=== PATIENT | male | born 1955 | race Caucasian/White ===

== ENCOUNTER 2020-10-06 10:32 | Outpatient (REF) | payer MEDICAID, SELFPAY | END 2020-10-06 10:33 | disposition home or self-care (01) | LOC: HO.LAB 10:32 | PROVIDERS: Visit Provider Internal Medicine | DX: Z20.828 Contact with and (suspected) exposure to other viral communicable diseases (principal) | CPT/HCPCS: C9803; U0003 ==

== ENCOUNTER → 2021-03-01 10:48 | Outpatient (BNV) | payer MEDICARE, MEDICAID, SELFPAY | PROVIDERS: Visit Provider Internal Medicine Medical Oncology | DX: C85.90 Non-Hodgkin lymphoma, unspecified, unspecified site (principal); D64.9 Anemia, unspecified | CPT/HCPCS: 99213 ==

== ENCOUNTER 2024-08-28 09:32 | Outpatient (REF) | payer MEDICARE, MEDICAID, SELFPAY ==
[2024-08-28 11:21] LABS: MANUAL DIFF FLAG NO
[2024-08-28 11:25] LABS: Basophils Absolute Auto 0.1 X10*3/uL (0.0-0.2); Basophils Percent Auto 0.7 % (0-2); Eosinophils Absolute Auto 0.2 X10*3/uL (0.0-0.4); Eosinophils Percent Auto 2.7 % (0-4); Hematocrit 43.3 % (42.0-52.0); Hemoglobin 14.6 g/dl (14.0-18.0); Imm Gran Abs Auto 0.02 X10*3/uL (0.00-0.03); Imm Gran Pct Auto 0.3 % (0.0-0.4); Lymphocytes Absolute Auto 1.8 X10*3/uL (1.2-4.9); Lymphocytes Percent Auto 25.3 % (20-40); Mean Corpuscular HGB Conc 33.7 g/dl (31.0-36.0); Mean Corpuscular Hemoglobin 31.5 pg (27.0-33.0); Mean Corpuscular Volume 93.3 fL (80.0-98.0); Mean Platelet Volume 10.3 fL (9.4-12.4); Monocytes Absolute Auto 0.5 X10*3/uL (0.1-1.2); Monocytes Percent Auto 7.6 % (2-11); Neutrophils Absolute Auto 4.4 x10*3/uL (2.0-8.3); Neutrophils Percent Auto 63.4 % (45-73); Platelet Count 247 X10*3/uL (160-400); Red Blood Count 4.64 X10*6/uL (4.60-5.80); Red Cell Distribution Width 12.1 % (11.0-16.0)
[2024-08-28 11:35] LABS: Estimated Average Glucose 180 mg/dL; Hemoglobin A1C 225.6029 umol/L; Hemoglobin A1c % 7.9 % (<6.0); Total Hemoglobin (HGBA1C) 3620.5205 umol/L
[2024-08-28 11:40] LABS: Creatinine Urine 150.23 mg/dL; Microalbum/Creatinine Ratio Ur 6.6 ug/mg cr (<30)
[2024-08-28 11:51] LABS: Anion Gap 11 (12-20); Blood Urea Nitrogen 17 mg/dL (9-16); Calcium 10.1 mg/dL (8.4-10.2); Carbon Dioxide 27 mmol/L (22-29); Chloride 106 mmol/L (96-108); Cholesterol 177 mg/dL (<200); Estimated Glomerular Filt Rate > 60; Glucose Random 207 mg/dL (60-115); HDL Cholesterol 54 mg/dL (>40); LDL Cholesterol Calculated 96 mg/dL (<100); Potassium 4.3 mmol/L (3.3-5.1); Sodium 140 mmol/L (135-145); Triglycerides 137 mg/dL (<150)
== END 2024-08-28 09:33 | disposition home or self-care (01) ==
LOC: HO.HHCL 09:32
PROVIDERS: Visit Provider Family Medicine
DX: E11.9 Type 2 diabetes mellitus without complications (principal); Z79.4 Long term (current) use of insulin
CPT/HCPCS: 36415; 80048; 80061; 82043; 82570; 83036; 85025

== ENCOUNTER 2025-04-20 10:34 | Outpatient (REF) | payer OTHER, SELFPAY ==
[2025-04-20 11:15] LABS: MANUAL DIFF FLAG NO
--- OUTSIDE RECORDS SUMMARY | 2025-04-20 11:26 | XMS_ITS | Clinical Summary ---
Author Organization [employer] Address [address] [place] [address] Care Team Providers Care Case Coordinator Name Role Phone Chandni Morales MD Primary Care Provider + Allergies No known active allergies Medications insulin glargine (Lantus SoloStar) 100 UNIT/ML pen inject by subcutaneous route 8 units QHS 1 Active metFORMIN XR (Glucophage-XR) 500 MG 24 hr tablet TAKE 2 TABLETS BY MOUTH TWICE DAILY IN THE MORNING AND EVENING 2 Active sildenafil (Viagra) 50 MG tablet Take 1 tablet by mouth at bed time. 1 Active simvastatin (Zocor) 40 MG tablet Take 1 tablet by mouth at bed time. 1 Active FREESTYLE LITE test strip Use to test blood sugar 1x times daily 100 each 12 5 03/05/20 26 Active Lancets misc Use to test blood sugar 1x times daily 100 each 11 5 Active Blood Glucose Monitoring Suppl (FreeStyle Art Lite) w/Device kit Use to test blood sugar 1x times daily 1 kit 5 Active DULoxetine (Cymbalta) [address] capsule Take 1 capsule (30 mg) by mouth 2 times daily. Do not crush or chew. 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 He prefers to start medications and follow-up with me in 4 weeks. We discussed the importance of quitting alcohol and any other recreational substance use, I told him he can reach out to CRS building at any point and also acupuncture treatments. He is not interested on AUD clinic referral or [facility] pharmacy program for cigarette smoking. Start duloxetine 30 mg x 2 weeks then twice daily and follow-up with me in 4 weeks to adjust medications We discussed about crisis number and reach out to the walk-in center if needed He feels safe at home and is able to reach out for safety, he does not have any SI or HI at this time. Vitamin D deficiency 09/20/2012 Smoker 09/06/2012 Hypertension 09/06/2012 Assessment & Plan (03/05/2025 4:50 PM EDT): Off medications at this time Advised to check BP at home 3 times weekly and follow-up with me in 4 to 5 weeks Advised to quit smoking, increase exercise. History of substance abuse 09/06/2012 Assessment & Plan (03/05/2025 4:54 PM EDT): Currently using THC and cocaine regularly, he is aware of side effects and long- term consequences of its use and agreed to start cutting down on its own. We discussed about importance of psychotherapy and that he can reach out to recovery coaches or CRS programs, he is not interested on any referral at this point. I told him he can come to acupuncture clinic that could help him with anxiety and quitting smoking and alcohol. Follow-up with me in 4 weeks Agreed to STI testing History of alcohol abuse 09/06/2012 Diabetes mellitus 09/06/2012 Assessment & Plan (03/05/2025 4:51 PM EDT): Mildly uncontrolled, A1c may be good for his age. We discussed importance of lifestyle modifications, especially cutting down on alcohol and increase physical activity. Will hold off on medications for now, order labs and follow-up with me in 4 weeks Check fingersticks once daily Encounters Date Type Department Care Team Description 03/20/2025 Telephone [facility] [address] [place] [phone] Chandni Morales MD 03/19/2025 Telephone [facility] [address] [place] [phone] Chandni Morales MD June recall 03/05/2025 9:15 AM EDT Office Visit [address] [address] Chandni Morales MD Primary hypertension (Primary Dx); Type 2 diabetes mellitus with hyperglycemia, with long-term current use of insulin (CMS/[facility]); History of substance abuse ([facility]); Mild episode of recurrent major depressive disorder ([facility]); Sexually transmitted disease counseling 03/05/2025 Travel 03/04/[address] [phone] Chandni Morales MD Chart Prep 02/23/2025 Patient Outreach [address] [address] Chandni Morales MD Pre-visit Planning ((Unable to reach for PVP screening, LVM)) from Last 3 Months Immunizations Immunization Administration Dates Next Due Hep A, Adult 11/06/2012 Hep B, adult 12/05/2012,11/06/2012 Influenza injectable quadriv alent IIV4 with preservative 07/21/2015 Influenza injectable quadriv alent preservative free 09/29/2019,08/12/2018,07/30/2017 Influenza, IIV3, injectable 06/24/2014, 7 Influenza, Split (incl. juliocesar fied surface antigen) 11/06/2012 Influenza, seasonal, injecta ble, preservative free 12/28/2016 MMR 11/06/2012 Pneumococcal Polysaccharide PPSV23 08/12/2018, TD (adult), 2 Lf tetanus tox oid, preservative free, adsorbed 06/25/2006 Tdap 11/06/2012 Zoster, Recombinant 05/27/2021,03/23/2021 Family History Medical History Relation Name Comments Colon cancer Mother Throat cancer Other Relation Name Status Comments Mother Other Social History Tobacco Use Types Packs/Day Years Used Date Smoking Tobacco: Every Day Cigarettes Passive Smoke Exposure: Current Tobacco Cessation:Ready to Q uit: Not Asked; Counseling Given: Not Answered Alcohol Use Standard Drinks/Week Comments Not Currently 1 (1 standard drink = 0.6 oz pur e alcohol) 1 pint/ drink Alcohol Answer Date Recorded Q1: How often do you have a drink containing alc ohol? 4 03/05/2025 Q2: How many drinks containi ng alcohol do you have on a typical day when you are drinking? 1 03/05/2025 Q3: How often do you have six or more drinks on one occasion? 2 03/05/2025 Depression Answer Date Recorded Patient Health Questionnaire-9 Score 6 03/05/2025 Patient Health Questionnaire-9 Score 6 03/05/2025 Last PHQ-9: Questionnaire Data Not on file 0 03/05/2025 Depression Answer Date Recorded Patient Health Questionnaire-2 Score 2 03/05/2025 Sex and Gender Information Value Date Recorded Sex Assigned at Male 08/07/2022 10:18 AM EDT Legal Sex Male 10:18 AM EDT Gender Identity Male 08/07/2022 10:18 AM EDT Sexual Orientation Straight 08/07/2022 10 :18 AM EDT Last Filed Vital Signs Vital Sign Reading Time Taken Comments Blood Pressure 136/80 03/05/2025 9:23 AM EDT Pulse 84 03/05/2025 9:23 AM EDT Temperature 36.3 C (97.3 F) 03/05/2025 9:23 AM EDT Respiratory Rate 16 03/05/2025 9:23 AM EDT Oxygen Saturation 98% 08/28/2024 8:55 AM EST Inhaled Oxygen Concentration - - Weight 74.8 kg (165 lb) 03/05/2025 9:23 AM EDT Height 180.3 cm (5' 11 ) 03/05/2025 9:23 AM EDT Body Mass Index 23.01 03/05/2025 9:23 AM EDT Plan of Treatment Upcoming Encounters Date Type Department Care Team (Late st Contact Info) Description 06/11/2025 10:30 AM EDT Office Visit [facility] [address] [place] [address] Chandni Morales MD [address] [place] [address] Health Maintenance Due Date Last Done Comments CT Colonography 1957 Colonoscopy 1957 Colorectal Cancer Screening 1957 FIT DNA/Cologuard 1957 FIT 1957 FOBT 1957 SDOH Screening 1957 Sigmoidoscopy 1957 Diabetes: Foot Exam 1967 Hepatitis C Screening 1975 Hepatitis B Vaccines (3 of 3 - 19+ 3-dose series) 05/06/2013 12/05/2012, 11/06/2012 RSV Patients and Patients Aged 60 years or older (1 - Risk 60-74 years 1-dose series) 2017 Pneumococcal Vaccine: 50+ Years (2 of 2 - PCV) 08/12/2019 08/12/2018, 06/25/2006 DTaP/Tdap/Td Vaccines (2 - Td or Tdap) 11/06/2022 11/06/2012, 06/25/2006 Eye Exam 03/02/2024 03/02/2023, 02/06, 03/02/2023, Additional history exists COVID-19 Vaccine ( season) 2024 08/24/2021, 01/22/2021, 12/30/2020 Diabetes: Hemoglobin A1C 06/05/2025 025, 08/28/2024, 08/28/2024 Influenza Vaccine (#1) 2025 9, 08/12/2018, 07/30/2017, Additional history exists Diabetes: Urine Protein Screening 08/28/2025 08/28/2024, 12/10/2020 Lipid Panel 08/28/2025 08/28/2024, 12/10/2020 Alcohol/Substance Use Screening 03/05/2026 03/05/2025 Depression Screening 03/05/2026 03/05/2025, 03/05/20 Tobacco Screening 03/05/2026 03/05/2025 Hepatitis A Vaccines Aged Out 11/06/2012 No long er eligible based on patient's age to complete this topic Zoster Vaccines Completed 05/27/2021, 03/23/2021 HIB Vaccines Aged Out No longer eligi ble based on patient's age to complete this topic HPV Vaccines Aged Out No longer eligi ble based on patient's age to complete this topic IPV Vaccines Aged Out No longer eligi ble based on patient's age to complete this topic Meningococcal B Vaccine Aged Out No l onger eligible based on patient's age to complete this topic Meningococcal Vaccine Aged Out No jerome santana eligible based on patient's age to complete this topic RSV under 20 months Aged Out No longe r eligible based on patient's age to complete this topic Rotavirus Vaccines Aged Out No longer eligible based on patient's age to complete this topic Procedures Procedure Name Priority Date/Time Associated Diagnosis Comments POCT GLYCATED HEMOGLOBIN, TOTAL Routine 03/05/2025 9:34 AM EDT Type 2 diabetes mellitus with hyperglycemia, with long-term current use of insulin ([facility]) POCT GLUCOSE Routine 03/05/2025 9:24 AM EDT Type 2 diabetes mellitus with hyperglycemia, with long-term current use of insulin ([facility]) ALBUMIN, RANDOM URINE W/CREATININE Routine 08/28/2024 9:42 AM EST Type 2 diabetes mellitus without complication, with long-term current use of insulin ([facility]) LIPID PANEL, STANDARD Routine 08/28/2024 9:35 AM EST Type 2 diabetes mellitus without complication, with long-term current use of insulin ([facility]) from Last 3 Months or Most Recently Relevant to Health Maintenance Results * (ABNORMAL) POCT HGB A1C (03/05/2025 9:34 AM EDT) Hemoglobin A1C 7.7(A) 4.0 - 6.0 % QC Media Lot # [id number] Lot# Expiration Date Blood 03/05/2025 9:34 AM EDT Chandni Morales MD POINT OF CARE TEST ENTER /EDIT ORDERABLES Final Result * (ABNORMAL) POCT Glucose (03/05/2025 9:24 AM EDT) Glucose Blood, POC 216(A) 60 - 200 mg/dL QC Media Lot # [id number] Lot# Expiration Date [id number] Blood Capillary blood specimen / Unknown 03/05/2025 9:24 AM EDT us Chandni Morales MD POINT OF CARE TEST ENTER /EDIT ORDERABLES Final Result * Albumin, Random Urine W/Creatinine (08/28/2024 9:42 AM EST) Creatinine, Urine 150.23 mg/dL [facility] Microalbumin Urine 10.0 mg/L [facility] Microalbum Creatinine Ratio Ur 6.6 <30 ug/mg cr [facility] Comment:Albumin/Creatinine R atio Reference Ranges: Normal: < 30 ug/mg creatinine Microalbuminuria: 30 - 300 ug/mg creatinineClinical Albuminuria: > 300 ug/mg creatinine Urine (Urine, Random) 08/28/2024 9:42 AM EST 08/28/2024 11:01 AM EST us Emil Leon MD LAB URINE ORDERABLES Final Resul t Performing Organization Address City/State/[facility] Co de Phone Number [facility] [address] [place] [phone] * Lipid Panel, Standard (08/28/2024 9:35 AM EST) Triglycerides 137 <150 mg/dL [facility] Comment:Desirable Triglyceri de: less than 150 mg/dLBorderline High Triglyceride 150-199 mg/dLHigh Triglyceride: 200-499 mg/dLVery High Triglyceride: greater than or equal to 5OO mg/dL Cholesterol 177 <200 mg/dL [facility] Comment:Desirable Cholestero l: less than 200 mg/dLBorderline High Cholesterol: 200-239 mg/dLHigh Cholesterol: greater than 239 mg/dL LDL Cholesterol Calculated 96 <100 mg/dL [facility] Comment:Desirable LDL: less than 100 mg/dLNear Optimal/Above Optimal LDL: 110- 129 mg/dLBorderline High LDL: 130-159 mg/dLHigh LDL: 160-189 mg/dLVery High LDL: greater than or equal to 190 mg/dL HDL Cholesterol 54 >40 mg/dL [facility] Comment:Desirable HDL: great er than 40 mg/dL Note: This HDL assay may give artificially low results in patients with liver disease. Blood Venous blood specimen / Unknown 08/28/2024 9:35 AM EST 08/28/2024 11:13 AM EST us Emil Leon MD LAB BLOOD ORDERABLES Final Resul t [facility] [address] [place] [phone] [phone] from Last 3 Months or Most Recently Relevant to Health Maintenance Insurance [facility] STANDARD MEDICARE Care Teams Case Coordinator Relationship Specialty Start Date End Date Chandni Morales MD [address] [place] [phone] PCP - General Internal Medicine 03/05/25
--- OUTSIDE RECORDS SUMMARY | 2025-04-20 11:26 | XMS_ITS | Patient Health Record ---
Author Organization [facility] Address [address] [place] [address] Care Team Providers Care Autocad Draftsman Name Role Phone Al-Macki (DO NOT USE), [facility] Provi corey Unavailable Kvng Barrios Jr Unavailable Reason For Referral No Information Plan Of Treatment No Information Insurance Providers Payer Name Payer Address Payer Phone Subscriber Number Group Number Insured Name Patient Relationship to Insured Coverage Start Date Coverage End Date MEDICAID OF [facility] [address] [place] [phone] [id number] LOIS LEVI Self - patient is the insured
--- OUTSIDE RECORDS SUMMARY | 2025-04-20 11:26 | XMS_ITS | Clinical Summary ---
Author Organization [facility] Address [address] [place] [address] Phone Care Team Providers Care Channel Process Supervisor Name Role Phone Emil Leon MD Primary Care Provider [phone] Medications ammonium lactate (AmLactin) 12 % lotion Apply topically if needed for dry skin. 400 g 5 11/06/19 26 Active ammonium lactate (AmLactin) 12 % lotion Apply topically if needed for dry skin. 400 g 5 01/20/20 26 Active ciclopirox (LOPROX) 0.77 % gel Apply topically 2 (two) times a day. 45 g 5 04/19/20 25 Encounters Date Type Department Care Team Description 01/19/2025 2:30 PM EDT Office Visit [facility] [address] [phone] Aristeo Winkler, DPM Dermatophytosis of nail (Primary Dx); Xerosis of skin; Tinea pedis of both feet; Pain in toe of right foot; Diabetic mononeuropathy simplex (CMS/HCC V24, CMS/HCC V28); Pain in toe of left foot from Last 3 Months Social History Tobacco Use Types Packs/Day Years Used Date Smoking Tobacco: Never Assessed Sex and Gender Information Value Date Recorded Sex Assigned at Not on file Legal Sex Male 9:39 AM EST Gender Identity Not on file Sexual Orientation Not on file Plan of Treatment Upcoming Encounters Date Type Department Care Team ([facility] Contact Info) Description 04/20/2025 1:45 PM EDT Office Visit [facility] [address] [phone] Aristeo Winkler, DPM [address] [facility] [address] [place] [address] Health Maintenance Due Date Last Done Comments Hepatitis B Vaccines (3 of 3 - 19+ 3-dose series) 05/06/2013 12/05/2012, 11/06/2012 RSV Immunization Adult Patients (1 - Risk 60-74 years 1-dose series) 2017 Pneumococcal Vaccine: 50+ Years (2 of 2 - PCV) 08/12/2019 08/12/2018, 06/25/2006 DTaP,Tdap,and Td Vaccines (3 - Td or Tdap) 11/06/2022 11/06/2012, 06/25/2006 COVID-19 Vaccine (4 - 2023- season) 2024 08/24/2021, 01/22/2021, 12/30/2020 Abdominal Aortic Aneurysm (AAA) Screen 09/02/2024 Colorectal Cancer Screening: Colonoscopy 09/02/2024 Depression Screening 09/02/2024 Falls Risk Assessment 09/02/2024 Hepatitis C Screening 09/02/2024 Social Influencers of Health Screening 09/02/2024 Influenza Vaccine (#1) 2025 9, 08/12/2018, 07/30/2017, Additional history exists Cholesterol Screening (Lipid Panel) 08/28/2029 08/28/2024 Hepatitis A Vaccines Aged Out 11/06/2012 No long er eligible based on patient's age to complete this topic MMR Vaccines Aged Out 11/06/2012 No longer eligi ble based on patient's [...] patient's age to complete this topic Meningococcal ACWY Vaccine Aged Out N o longer eligible based on patient's age to complete this topic Meningococcal B Vaccine Aged Out No l onger eligible based on patient's age to complete this topic RSV Immunization Patients Under 20 months Aged Out No longer eligible based on patient's age to complete this topic Varicella Vaccines Aged Out No longer eligible based on patient's age to complete this topic Insurance MEDICAID - [place] Care Teams Channel Process Supervisor Relationship Specialty Start Date End Date Emil Leon MD [address] [place] [phone] PCP - General Family Medicine 09/02/24
[2025-04-20 11:43] LABS: Hematocrit 42.1 % (42.0-52.0); Hematocrit 43.4 % (42.0-52.0); Hemoglobin 14.2 g/dl (14.0-18.0); Hemoglobin 14.3 g/dl (14.0-18.0); Imm Gran Abs Auto 0.02 X10*3/uL (0.00-0.03); Imm Gran Abs Auto 0.03 X10*3/uL (0.00-0.03); Imm Gran Pct Auto 0.3 % (0.0-0.4); Imm Gran Pct Auto 0.5 % (0.0-0.4); Lymphocytes Absolute Auto 1.7 X10*3/uL (1.2-4.9); Mean Corpuscular HGB Conc 32.9 g/dl (31.0-36.0); Mean Corpuscular HGB Conc 33.7 g/dl (31.0-36.0); Mean Corpuscular Hemoglobin 31.1 pg (27.0-33.0); Mean Corpuscular Hemoglobin 31.3 pg (27.0-33.0); Mean Corpuscular Volume 92.7 fL (80.0-98.0); Mean Corpuscular Volume 94.3 fL (80.0-98.0); NRBC Abs Auto 0.000 X10*3/uL (0.0-0.012); NRBC Pct Auto 0.0 /100WBC (0.0-0.2); Platelet Count 210 X10*3/uL (160-400); Platelet Count 217 X10*3/uL (160-400); Red Blood Count 4.54 X10*6/uL (4.60-5.80); Red Blood Count 4.60 X10*6/uL (4.60-5.80); White Blood Count 6.3 X10*3/uL (4.8-10.8); White Blood Count 6.4 X10*3/uL (4.8-10.8)
[2025-04-20 12:28] LABS: Microalbum/Creatinine Ratio Ur 7.5 ug/mg cr (<30)
[2025-04-20 12:33] LABS: Alanine Aminotransferase 13 U/L (0-40); Albumin Level 4.2 g/dL (3.5-5.0); Alkaline Phosphatase 88 U/L (39-117); Anion Gap 11 (12-20); Aspartate Amino Transferase 19 U/L (5-37); Blood Urea Nitrogen 16 mg/dL (9-16); Calcium 9.2 mg/dL (8.4-10.2); Carbon Dioxide 28 mmol/L (22-29); Chloride 108 mmol/L (96-108); Estimated Glomerular Filt Rate > 60; Potassium 4.9 mmol/L (3.3-5.1); Sodium 142 mmol/L (135-145); Total Protein 7.3 g/dL (6.5-8.0)
[2025-04-20 12:37] LABS: Alanine Aminotransferase 16 U/L (0-40); Albumin Level 4.2 g/dL (3.5-5.0); Alkaline Phosphatase 88 U/L (39-117); Anion Gap 11 (12-20); Aspartate Amino Transferase 20 U/L (5-37); Blood Urea Nitrogen 16 mg/dL (9-16); Calcium 9.4 mg/dL (8.4-10.2); Carbon Dioxide 28 mmol/L (22-29); Chloride 108 mmol/L (96-108); Cholesterol 195 mg/dL (<200); Estimated Glomerular Filt Rate > 60; HDL Cholesterol 58 mg/dL (>40); Potassium 4.8 mmol/L (3.3-5.1); Sodium 142 mmol/L (135-145); Total Protein 7.3 g/dL (6.5-8.0); Triglycerides 115 mg/dL (<150)
[2025-04-20 12:47] LABS: Reflex LDLD? No
[2025-04-20 12:51] LABS: Syphilis Screen Nonreactive (Nonreactive)
== END 2025-04-20 10:35 | disposition home or self-care (01) ==
LOC: HO.HHCL 10:34
PROVIDERS: Internal Medicine Medical Oncology; PCP Internal Medicine; Visit Provider Internal Medicine
DX: E11.65 Type 2 diabetes mellitus with hyperglycemia (principal); I10 Essential (primary) hypertension; C85.90 Non-Hodgkin lymphoma, unspecified, unspecified site; F33.0 Major depressive disorder, recurrent, mild; F19.11 Other psychoactive substance abuse, in remission; Z70.8 Other sex counseling; Z79.4 Long term (current) use of insulin
CPT/HCPCS: 36415; 80053; 80061; 82043; 82570; 83615; 84443; 85025; 86780